=== PATIENT | male | born 1990 | race Caucasian/White ===

== ENCOUNTER 2019-09-29 17:35 | Emergency (ER) | payer SELFPAY ==
[2019-09-29 18:08] VITALS: BP 119/59; PULSE 96
[2019-09-29] MEDS ORDERED: Diphtheria,Pertussis(Acell),Tetanus Vaccine 0.5 ML Syringe IM ONE (18:17)
--- NOTE | 2019-09-29 18:24 | EDM.PDOC ---
ED HPI GENERAL MEDICAL PROBLEM - General Chief Complaint: Laceration Stated Complaint: POSSIBLE INJURY TO RIGHT HAND Time Seen by Provider: 09/29/19 17:42 Source of Information: Reports: Patient History Limitations: Reports: No Limitations - History of Present Illness INITIAL COMMENTS - FREE TEXT/NARRATIVE: Presents reporting a laceration to his right index finger. The patient states he was cutting something with a knife when it slipped, cutting the tip of his right index finger along the nail with a flap. Greater than 10 years since last tetanus shot. He is otherwise healthy without chronic medical problems. He is right-hand dominant. right index finger Pain Score (Numeric/FACES): 3 - Related Data Allergies Allergy/AdvReac Type Severity Reaction Status Date / Time No Known Allergies Allergy Verified 09/29/19 18:08 Home Meds: Home Meds . [No Known Home Meds] 04/05/14 [History] Past Medical History - Past Health History Medical/Surgical History: Denies Medical/Surgical History HEENT History: Reports: None Cardiovascular History: Reports: None Respiratory History: Reports: None Gastrointestinal History: Reports: None Genitourinary History: Reports: None Musculoskeletal History: Reports: None Neurological History: Reports: None Psychiatric History: Reports: None Endocrine/Metabolic History: Reports: None Hematologic History: Reports: None Immunologic History: Reports: None Oncologic (Cancer) History: Reports: None Dermatologic History: Reports: None - Infectious Disease History Infectious Disease History: Reports: None - Past Surgical History Head Surgeries/Procedures: Reports: None HEENT Surgical History: Reports: None Cardiovascular Surgical History: Reports: None Respiratory Surgical History: Reports: None GI Surgical History: Reports: None Male Surgical History: Reports: None Endocrine Surgical History: Reports: None Neurological Surgical History: Reports: None Musculoskeletal Surgical History: Reports: None Oncologic Surgical History: Reports: None Dermatological Surgical History: Reports: None Social & Family History - Family History Family Medical History: Noncontributory - Tobacco Use Smoking Status *Q: Current Every Day Smoker Years of Tobacco use: 15 Packs/Tins Daily: 0.5 - Caffeine Use Caffeine Use: Reports: Coffee, Energy Drinks, Soda, Tea - Recreational Drug Use Recreational Drug Use: No ED ROS GENERAL - Review of Systems Review Of Systems: Comprehensive ROS is negative, except as noted in HPI. ED EXAM, SKIN/RASH Exam: See Below Exam Limited By: No Limitations General Appearance: Alert, No Apparent Distress Ears: Normal External Exam Nose: Normal Inspection Throat/Mouth: Normal Inspection Head: Atraumatic, Normocephalic Neck: Normal Inspection Respiratory/Chest: No Respiratory Distress Cardiovascular: Normal Peripheral Pulses Extremities: Other (Tip of right finger along lateral nail semicircular flap laceration. Minimal bleeding.) Neurological: Alert, Oriented Psychiatric: Normal Affect, Normal Mood Skin: Warm, Dry, Intact, Normal Color, No Rash ED SKIN PROCEDURES - Laceration/Wound Repair Right Digit - 2nd (Index) Distal NVT: Neuro & Vascular Intact Skin Prep: Chlorhexidine (Hibiciens) Exploration/Debridement/Repair: Wound Explored, In a Bloodless Field Closed with: Wound Adhesive, Steri-Strips Lac/Wound length In cm: 2 Course - Vital Signs Last Recorded V/S: Last Vital Signs Temp 36.9 C 09/29/19 18:07 Pulse 96 09/29/19 18:07 Resp 17 09/29/19 18:07 BP 119/59 L 09/29/19 18:07 Pulse Ox 98 09/29/19 18:07 - Orders/Labs/Meds Orders: Active Orders 24 hr Category Date Time Status Skin Adhesive [RC] STAT Care 09/29/19 18:16 Ordered Vaccines to be Administered [RC] PER UNIT ROUTINE Care 09/29/19 18:17 Ordered Meds: Medications Discontinued Medications Generic Name Dose Route Start Last Admin Trade Name Freq PRN Reason Stop Dose Admin Diphtheria/Tetanus/Acell Pertussis 0.5 ml 09/29/19 18:17 Adacel IM 09/29/19 18:18 .ONCE ONE Departure - Departure Time of Disposition: 18:47 Disposition: Home, Self-Care 01 Condition: Good Clinical Impression: Laceration - Discharge Information Referrals: PCP,None [Primary Care Provider] - [facility] [Outside] [facility] [Outside] Additional Instructions: The following information is given to patients seen in the emergency department who are being discharged to home. This information is to outline your options for follow-up care. We provide all patients seen in our emergency department with a follow-up referral. The need for follow-up, as well as the timing and circumstances, are variable depending upon the specifics of your emergency department visit. If you don't have a primary care physician on staff, we will provide you with a referral. We always advise you to contact your personal physician following an emergency department visit to inform them of the circumstance of the visit and for follow-up with them and/or the need for any referrals to a consulting specialist. The emergency department will also refer you to a specialist when appropriate. This referral assures that you have the opportunity for follow-up care with a specialist. All of these measure are taken in an effort to provide you with optimal care, which includes your follow-up. Under all circumstances we always encourage you to contact your private physician who remains a resource for coordinating your care. When calling for follow-up care, please make the office aware that this follow-up is from your recent emergency room visit. If for any reason you are refused follow-up, please contact the [facility] Emergency Department at and asked to speak to the emergency department charge nurse. 1. For signs of infection: Redness, swelling, purulent drainage report promptly 2. Cover While working 3. Steri-strip will fall off on its own Sepsis Event Note - Evaluation Sepsis Screening Result: No Definite Risk - Focused Exam Vital Signs: Vital Signs Temp Pulse Resp BP Pulse Ox 09/29/19 18:07 36.9 C 96 17 119/59 L 98 Date Exam was Performed: 09/29/19 Time Exam was Performed: 18:19 - My Orders Last 24 Hours: My Active Orders 09/29/19 18:16 Skin Adhesive [RC] STAT 09/29/19 18:17 Vaccines to be Administered [RC] PER UNIT ROUTINE - Assessment/Plan Last 24 Hours: My Active Orders 09/29/19 18:16 Skin Adhesive [RC] STAT 09/29/19 18:17 Vaccines to be Administered [RC] PER UNIT ROUTINE
[2019-09-29] MEDS ORDERED: Octyl 2-Cyanoacrylate 1 APPLIC TUBE TOP ONE (18:27)
[2019-09-29] MEDS ORDERED: Octyl 2-Cyanoacrylate 1 APPLIC TUBE ONE (18:28)
== END 2019-09-29 18:48 | disposition home or self-care (01) ==
LOC: MW.ED 17:35
DX: S61.210A Laceration without foreign body of right index finger without damage to nail, initial encounter (principal); F17.210 Nicotine dependence, cigarettes, uncomplicated; Z23 Encounter for immunization; W26.0XXA Contact with knife, initial encounter
CPT/HCPCS: 90471; 90715; 99282; A9270

== ENCOUNTER 2021-05-09 08:49 | Emergency (ER) | payer SELFPAY ==
--- NOTE | 2021-05-09 09:32 | EDM.PDOC ---
ED HPI GENERAL MEDICAL PROBLEM - General Chief Complaint: Respiratory Problem Stated Complaint: FEVER WEAK COUGHING Time Seen by Provider: 05/09/21 08:58 - History of Present Illness INITIAL COMMENTS - FREE TEXT/NARRATIVE: History of present illness: [] This healthy young man got sick yesterday. He has cough first. He has congestion, weakness, body aches. He feels feverish. He otherwise enjoys good health. Symptoms are constant and moderately severe. He does not feel like he passed out but he feels weak all over. Review of systems: As per history of present illness and below otherwise all systems reviewed and negative. Past medical history: As per history of present illness and as reviewed below otherwise noncontributory. Surgical history: As per history of present illness and as reviewed below otherwise no ncontributory. Social history: No reported history of drug or alcohol abuse. Family history: As per history of present illness and as reviewed below otherwise noncontributory. Physical exam: Constitutional - well developed, well-nourished and in no acute distress HEENT - normocephalic, no evidence of trauma - external nose and mouth normal - no mass in neck and no JVD - mucosae moist EYES - full EOM, PERRL, no icterus - no evidence of inflammation, injection, or drainage Respiratory - no respiratory distress, equal bilateral expansion, lungs clear to auscultation and no abnormal lung sounds Cardiovascular - Regular Rhythm with S1 and S2 appreciated and no murmur, gallop or rub. GI - abdomen soft without distension or organomegaly - normal bowel sounds - no guard or rebound Musculoskeletal no gross deformity of long bones or joints - no tenderness, swelling or edema Neurologic - Alert and oriented times four - CN II-XII grossly intact - motor sensory and coordination symmetrically normal Psychiatric - appropriate mood and affect with normal thought content Hematologic - No petechiae or purpura - mucosa appropriate color and sclera not pale - normal nail bed color and refill Integument - no rash or evidence of trauma - normal turgor Diagnostics: [] Therapeutics: [] Impression: [] Plan: [] Definitive disposition and diagnosis as appropriate pending reevaluation and review of above. Throat Pain Score (Numeric/FACES): 5 - Related Data Allergies Allergy/AdvReac Type Severity Reaction Status Date / Time No Known Allergies Allergy Verified 05/09/21 09:19 Home Meds: Home Meds Oseltamivir [Tamiflu] 75 mg PO BID 5 Days #10 cap 05/09/21 [Rx] Past Medical History - Past Health History Medical/Surgical History: Denies Medical/Surgical History HEENT History: Reports: None Cardiovascular History: Reports: None Respiratory History: Reports: None Gastrointestinal History: Reports: None Genitourinary History: Reports: None Musculoskeletal History: Reports: None Neurological History: Reports: None Psychiatric History: Reports: None Endocrine/Metabolic History: Reports: None Hematologic History: Reports: None Immunologic History: Reports: None Oncologic (Cancer) History: Reports: None Dermatologic History: Reports: None - Infectious Disease History Infectious Disease History: Reports: None - Past Surgical History Head Surgeries/Procedures: Reports: None HEENT Surgical History: Reports: None Cardiovascular Surgical History: Reports: None Respiratory Surgical History: Reports: None GI Surgical History: Reports: None Male Surgical History: Reports: None Endocrine Surgical History: Reports: None Neurological Surgical History: Reports: None Musculoskeletal Surgical History: Reports: None Oncologic Surgical History: Reports: None Dermatological Surgical History: Reports: None Social & Family History - Family History Family Medical History: No Pertinent Family History - Caffeine Use Caffeine Use: Reports: Coffee, Energy Drinks, Soda, Tea ED ROS GENERAL - Review of Systems Review Of Systems: Comprehensive ROS is negative, except as noted in HPI. ED EXAM, GENERAL - Physical Exam Exam: See Below Free Text/Narrative:: My physical exam is in the HPI Course - Vital Signs Last Recorded V/S: Last Vital Signs Temp 36.7 C 05/09/21 09:22 Pulse 108 H 05/09/21 09:22 Resp 17 05/09/21 09:22 BP 127/81 05/09/21 09:22 Pulse Ox 94 L 05/09/21 09:22 - Orders/Labs/Meds Labs: Laboratory Tests 05/09/21 Range/Units 09:20 Influenza Type A RNA POSITIVE H (NEGATIVE) Influenza Type B RNA NEGATIVE (NEGATIVE) SARS-CoV-2 RNA (RUIZ) NEGATIVE (NEGATIVE) Departure - Departure Time of Disposition: 10:33 Disposition: Home, Self-Care 01 Condition: Good Clinical Impression: Influenza A - Discharge Information Prescriptions: Oseltamivir [Tamiflu] 75 mg PO BID 5 Days #10 cap Instructions: Influenza, Adult, [id number] Forms: ED Department Discharge Additional Instructions: [facility]. You have influenza type a [facility] [address] [place] [address] [facility] [address] [place] [address] The following information is given to patients seen in the emergency department who are being discharged to home. This information is to outline your options for follow-up care. We provide all patients seen in our emergency department with a follow-up referral. The need for follow-up, as well as the timing and circumstances, are variable depending upon the specifics of your emergency department visit. If you don't have a primary care physician on staff, we will provide you with a referral. We always advise you to contact your personal physician following an emergency department visit to inform them of the circumstance of the visit and for follow-up with them and/or the need for any referrals to a consulting specialist. The emergency department will also refer you to a specialist when appropriate. This referral assures that you have the opportunity for follow-up care with a specialist. All of these measure are taken in an effort to provide you with optimal care, which includes your follow-up. Under all circumstances we always encourage you to contact your private physician who remains a resource for coordinating your care. When calling for follow-up care, please make the office aware that this follow-up is from your recent emergency room visit. If for any reason you are refused follow-up, please contact the [facility] Emergency Department at and asked to speak to the emergency department charge nurse. Sepsis Event Note (ED) - Evaluation Sepsis Screening Result: No Definite Risk - Focused Exam Vital Signs: Vital Signs Temp Pulse Resp BP Pulse Ox 05/09/21 09:22 36.7 C 108 H 17 127/81 94 L
[2021-05-09 10:11] VITALS: BP 127/81; PULSE 108
[2021-05-09 10:18] LABS: CORONAVIRUS COVID-19 NAA NEGATIVE (NEGATIVE); INFLUENZA A NAA POSITIVE (NEGATIVE); INFLUENZA B NAA NEGATIVE (NEGATIVE)
== END 2021-05-09 10:46 | disposition home or self-care (01) ==
LOC: MW.ED 08:49
DX: J10.1 Influenza due to other identified influenza virus with other respiratory manifestations (principal); Z20.822 Contact with and (suspected) exposure to COVID-19
CPT/HCPCS: 0240U; 99283

== ENCOUNTER 2021-05-25 11:19 | Emergency (ER) | payer SELFPAY ==
[2021-05-25 12:27] LABS: CORONAVIRUS COVID-19 NAA POSITIVE (NEGATIVE); INFLUENZA A NAA NEGATIVE (NEGATIVE); INFLUENZA B NAA NEGATIVE (NEGATIVE)
[2021-05-25 13:06] VITALS: BP 108/69; PULSE 92
== END 2021-05-25 13:07 | disposition home or self-care (01) ==
LOC: MW.ED 11:19
DX: U07.1 COVID-19 (principal)
CPT/HCPCS: 0240U; 99283

== ENCOUNTER 2022-05-24 17:22 | Emergency (ER) | payer SELFPAY ==
[2022-05-24] MEDS ORDERED: Acetaminophen/oxyCODONE 325-10 MG Tab PO STA (18:51)
[2022-05-24] MEDS ORDERED: Lidocaine 1% 5 ML VIAL INJECT ONE (20:20)
[2022-05-24] MEDS ORDERED: Lidocaine 1% 5 ML VIAL ONE (20:21)
[2022-05-24] MEDS ORDERED: Cephalexin 500 MG Cap PO ONE (22:25)
[2022-05-24] MEDS ORDERED: oxyCODONE 5 MG Tab PO ONE (22:25)
[2022-05-24 23:06] VITALS: BP 110/72; PULSE 72
== END 2022-05-24 22:40 | disposition home or self-care (01) ==
LOC: MW.ED 17:22
DX: S01.511A Laceration without foreign body of lip, initial encounter (principal); W01.198A Fall on same level from slipping, tripping and stumbling with subsequent striking against other object, initial encounter
CPT/HCPCS: 12013; 99282; A9270; J3490

== ENCOUNTER 2023-09-03 07:49 | Emergency (ER) | payer SELFPAY ==
[2023-09-03 08:16] VITALS: BP 117/74
[2023-09-03] MEDS: Ibuprofen 600 MG Tab PO ONE (08:31)
[2023-09-03 09:05] VITALS: PULSE 78
== END 2023-09-03 09:03 | disposition home or self-care (01) ==
LOC: MW.ED 07:49
DX: K04.7 Periapical abscess without sinus (principal); Z79.899 Other long term (current) drug therapy
CPT/HCPCS: 99283; A9270